=== PATIENT | male | born 1955 | race Two or more races ===

== ENCOUNTER 2024-01-19 11:00 | Inpatient (IN) | payer MEDICARE, MEDICAID ==
[~2024-01-19] VITALS: Ht 154.9 cm; Wt 70.1 kg
[2024-01-19 11:54] VITALS: PULSE 59; RESP 15; O2SAT 96
[2024-01-19 12:06] LABS: Basophils # (auto) 0.1 10 ^3/uL (0-0.2); Basophils % (auto) 0.8 % (0.0-2.0); Eosinophils # (auto) 0.1 10 ^3/uL (0-0.8); Eosinophils % (auto) 1.3 % (0.0-7.0); Hematocrit 29.1 % (41.0-53.0); Lymphocytes # (auto) 1.1 10 ^3/uL (0.4-5.4); Lymphocytes % (auto) 16.2 % (10.0-50.0); Mean Corpuscular Hemoglobin 31.6 pg (28.0-32.0); Mean Corpuscular Hgb Conc. 34.5 g/dL (32.0-36.0); Mean Corpuscular Volume 91.5 fL (80.0-100.0); Monocytes # (auto) 0.5 10 ^3/uL (0-1.3); Monocytes % (auto) 7.2 % (0.0-12.0); Neutrophils # (auto) 5.1 10 ^3/uL (1.6-8.6); Neutrophils % (auto) 74.5 % (37.0-80.0); Platelet Count (auto) 197 10^3/uL (140-450); Red Blood Cells 3.18 10^6/uL (4.5-5.90); Red Cell Distribution Width 15.1 % (11.8-14.3); White Blood Cell 6.9 10^3/uL (4.4-10.8)
[2024-01-19 12:15] LABS: Chloride 103 mmol/L (98-107); Potassium 4.9 mmol/L (3.5-5.1); Sodium 138 mmol/L (136-145)
[2024-01-19 12:16] LABS: Anion Gap 11 (5-15); Carbon Dioxide 24 mmol/L (20-30)
[2024-01-19 12:21] LABS: BUN/Creatinine Ratio 9.4 (10.0-20.0); Blood Urea Nitrogen 74 mg/dL (9-23); Glucose 122 mg/dL (74-106)
[2024-01-19 19:04] VITALS: BP 124/79; PULSE 58; RESP 18
[2024-01-19 20:00] VITALS: PULSE 69; RESP 20; O2SAT 98
[2024-01-19] MEDS: HEPARIN SODIUM (PORCINE) 5000 UNITS/ML 1ML VIAL SC SCH (21:11)
[2024-01-20] VITALS (7 sets, daily range): BP systolic 92–127; BP diastolic 50–74; PULSE 53–62; RESP 15–20; TEMP 97.6–98.6; O2SAT 92–99
[2024-01-20] MEDS: EPOETIN ALFA-EPBX 4,000 UNIT/ML VIAL SC ONE (21:12)
[2024-01-21 01:00] VITALS: BP 106/59; PULSE 53; RESP 16; TEMP 98.3; O2SAT 98
[2024-01-21 11:27] LABS: Anion Gap 11 (5-15); Carbon Dioxide 25 mmol/L (20-30); Chloride 101 mmol/L (98-107); Sodium 137 mmol/L (136-145)
[2024-01-21 11:28] LABS: Calcium 8.9 mg/dL (8.7-10.4)
[2024-01-21 11:32] LABS: Glucose 121 mg/dL (74-106)
[2024-01-21 11:33] LABS: BUN/Creatinine Ratio 7.3 (10.0-20.0)
[2024-01-21 11:36] LABS: Phosphorus 5.1 mg/dL (2.4-5.1)
[2024-01-21 11:41] LABS: Blood Urea Nitrogen 54 mg/dL (9-23)
[2024-01-21] MEDS: FUROSEMIDE 20 MG TAB PO SCH (16:04)
[2024-01-21 17:00] VITALS: BP 119/70; PULSE 54; RESP 18; TEMP 98; O2SAT 98
[2024-01-21 20:00] VITALS: PULSE 53; RESP 19; O2SAT 98
[2024-01-21 21:00] VITALS: BP 112/70; PULSE 53; RESP 19; TEMP 98.2; O2SAT 98
[2024-01-22 05:00] VITALS: BP 107/58; PULSE 52; RESP 17; TEMP 98.7; O2SAT 99
[2024-01-22 06:40] LABS: Chloride 101 mmol/L (98-107); Potassium 5.1 mmol/L (3.5-5.1); Sodium 137 mmol/L (136-145)
[2024-01-22 06:41] LABS: Anion Gap 11 (5-15); Carbon Dioxide 25 mmol/L (20-30)
[2024-01-22 06:46] LABS: BUN/Creatinine Ratio 7.3 (10.0-20.0); Blood Urea Nitrogen 60 mg/dL (9-23); Glucose 85 mg/dL (74-106)
[2024-01-22] MEDS: SODIUM CHL 0.9% 1000 ML BAG XX ONE ×2 (08:44→09:37)
[2024-01-22 09:00] VITALS: BP 126/64; PULSE 52; RESP 18; TEMP 97.8; O2SAT 99
[2024-01-22 17:12] VITALS: BP 104/55; PULSE 63; RESP 20; TEMP 98; O2SAT 99
[2024-01-22] MEDS: EPOETIN ALFA-EPBX 4,000 UNIT/ML VIAL SC ONE (21:00)
[2024-01-22 22:00] VITALS: BP 91/58; PULSE 55; RESP 17; TEMP 97.9; O2SAT 98
[2024-01-23] VITALS (7 sets, daily range): BP systolic 98–124; BP diastolic 49–71; PULSE 51–55; RESP 16–19; TEMP 98.2–98.7; O2SAT 97–99
[2024-01-24 01:00] VITALS: BP 120/50; PULSE 58; RESP 16; TEMP 98.4; O2SAT 98
[2024-01-24 05:00] VITALS: BP 123/70; PULSE 51; RESP 20; TEMP 98.7; O2SAT 99
[2024-01-24] MEDS: SODIUM CHL 0.9% 1000 ML BAG XX ONE (07:00)
[2024-01-24 07:16] LABS: Calcium 9.1 mg/dL (8.7-10.4); Chloride 100 mmol/L (98-107); Potassium 4.7 mmol/L (3.5-5.1); Sodium 137 mmol/L (136-145)
[2024-01-24 07:17] LABS: Anion Gap 9 (5-15); Carbon Dioxide 28 mmol/L (20-30)
[2024-01-24 07:22] LABS: BUN/Creatinine Ratio 7.5 (10.0-20.0); Blood Urea Nitrogen 56 mg/dL (9-23); Glucose 81 mg/dL (74-106)
[2024-01-24 08:00] VITALS: PULSE 54; RESP 17; O2SAT 98
[2024-01-24 08:51] VITALS: BP 133/77; PULSE 54; RESP 17; TEMP 98.4; O2SAT 98
[2024-01-24] MEDS: guaiFENesin-DM 100/10mg/5ml SYR PO PRN (12:32)
[2024-01-24 13:20] VITALS: BP 151/92; PULSE 97; RESP 17; TEMP 98; O2SAT 95
[2024-01-24 20:00] VITALS: RESP 17; O2SAT 98
[2024-01-24] MEDS: EPOETIN ALFA-EPBX 4,000 UNIT/ML VIAL SC ONE (22:16)
[2024-01-25 01:00] VITALS: BP 98/53; PULSE 59; RESP 17; TEMP 98.6; O2SAT 95
[2024-01-25 17:00] VITALS: BP 116/59; PULSE 58; RESP 18; TEMP 98.2; O2SAT 99
[2024-01-25 20:00] VITALS: PULSE 54; RESP 18; O2SAT 98
[2024-01-25] MEDS: ACETAMINOPHEN 325 MG TAB PO PRN (20:48)
[2024-01-25 21:00] VITALS: BP 108/68; PULSE 54; RESP 18; TEMP 99; O2SAT 98
[2024-01-26 05:20] VITALS: BP 105/62; PULSE 54; RESP 16; TEMP 97.8; O2SAT 95
[2024-01-26 06:12] LABS: Anion Gap 10 (5-15); Carbon Dioxide 27 mmol/L (20-30); Chloride 97 mmol/L (98-107); Potassium 4.5 mmol/L (3.5-5.1); Sodium 134 mmol/L (136-145)
[2024-01-26 06:18] LABS: BUN/Creatinine Ratio 7.1 (10.0-20.0); Blood Urea Nitrogen 57 mg/dL (9-23); Glucose 78 mg/dL (74-106)
[2024-01-26] MEDS: SODIUM CHL 0.9% 1000 ML BAG XX ONE (07:00)
[2024-01-26 09:00] VITALS: BP 119/71; PULSE 68; RESP 18; TEMP 98.1; O2SAT 92
[2024-01-26 13:00] VITALS: BP 114/51; PULSE 58; RESP 16; TEMP 98.1; O2SAT 99
[2024-01-26] MEDS: EPOETIN ALFA-EPBX 10,000 UNIT/1ML VIAL SC ONE (16:15)
[2024-01-26 21:00] VITALS: BP 116/70; PULSE 65; RESP 18; TEMP 97.7; O2SAT 100
== END 2024-01-26 22:00 | DRG 682 ==
LOC: ER 11:00 → EDBD 11:00 → OVERFLOW 14:29 → CENTRAL 15:06
PROVIDERS: ADMIT Nurse Practitioner Family; ATTEND Family Medicine
PROC: 5A1D70Z Performance of Urinary Filtration, Intermittent, Less than 6 Hours Per Day (ICD-10-PCS; principal; 2024-01-19)
PROC: 5A1D70Z Performance of Urinary Filtration, Intermittent, Less than 6 Hours Per Day (ICD-10-PCS; 2024-01-22)
DX: I12.0 Hypertensive chronic kidney disease with stage 5 chronic kidney disease or end stage renal disease (principal); N18.6 End stage renal disease; E44.0 Moderate protein-calorie malnutrition; D63.1 Anemia in chronic kidney disease; Z91.148 Patient's other noncompliance with medication regimen for other reason; Z68.29 Body mass index [BMI] 29.0-29.9, adult; Z99.2 Dependence on renal dialysis
CPT/HCPCS: 36415; 71045; 80048; 82962; 84100; 85025; 87340; 90935; 93005; 97110; 97116; 97163; 97530; G0378; J1642